=== PATIENT | male | born 1980 | race Caucasian/White ===

== ENCOUNTER 2017-01-30 16:26 | Emergency (ER) | payer SELFPAY ==
[~2017-01-30] VITALS: Ht 177.8 cm; Wt 90.7 kg
[2017-01-30 16:49] VITALS: BP 121/85
[2017-01-30] MEDS ORDERED: PROAIR HFA8.5 GM INH (18:29)
[2017-01-30] MEDS ORDERED: PRED20TA PO (18:29)
[2017-01-30] MEDS ORDERED: BENZ200C39 PO (18:29)
--- NOTE | 2017-01-30 18:29 | PHYS DOC ---
Past Medical History Past Medical History: Seizure Past Surgical History: No Surgical History Smokin Pack Per Day Alcohol Use: None Drug Use: None Social History Narrative: rehab for meth, clean x 2 wks Adult General Chief Complaint Chief Complaint: COUGH HPI HPI Patient is a 36 year old male who presents with productive cough and shortness of breath for the last 4-5 days. He has also had a sore throat. He denies fever , nasal congestion, ear pain, vomiting, or diarrhea. He is currently at the [facility] rehab facility for methamphetamine abuse. He has been sober for 2 weeks. He does not have a PCP. Review of Systems Review of Systems Constitutional: Denies fever or chills. [] Eyes: Denies change in visual acuity, redness, or eye pain. [] HENT: Denies ear pain, nasal congestion. Reports sore throat. Respiratory: Reports productive cough and shortness of breath. Cardiovascular: Denies chest pain, palpitations or edema. [] GI: Denies abdominal pain, nausea, vomiting, bloody stools or diarrhea. [] : Denies dysuria, hematuria or urinary frequency. [] Musculoskeletal: Denies back pain or joint pain. [] Integument: Denies rash or skin lesions. [] Neurologic: Denies headache, focal weakness or sensory changes. [] Endocrine: Denies polyuria or polydipsia. [] Psych: Denies anxiety or depression. [] All systems reviewed and negative unless otherwise stated in the HPI. Allergies Allergies Allergies Coded Allergies Type Severity Reaction Last Updated Verified azithromycin Allergy Severe Anaphylaxis 01/30/17 Yes Penicillins Allergy Intermediate 01/30/17 Yes Physical Exam Physical Exam Constitutional: Well developed, well nourished, no acute distress, non-toxic appearance. [] HENT: Normocephalic, atraumatic, bilateral external ears normal, oropharynx moist, no oral exudates, nose normal. Bilateral TMs without erythema or bulging. There is no posterior pharyngeal erythema or tonsillar edema. Bilateral nasal turbinates are swollen and erythematous. Eyes: PERRLA, EOMI, conjunctiva normal, no discharge. [] Neck: Normal range of motion, no tenderness, supple, no stridor. [] Cardiovascular: Heart rate regular rhythm, no murmur [] Lungs & Thorax: Bilateral breath sounds clear to auscultation without wheezes, rales, or rhonchi. Skin: Warm, dry, no erythema, no rash. [] Neurologic: Alert and oriented X 3, normal motor function, normal sensory function, no focal deficits noted. [] Psychologic: Affect normal, judgement normal, mood normal. [] Current Patient Data Vital Signs Vital Signs Date Time Temp Pulse Resp B/P Pulse Ox O2 Delivery O2 Flow Rate FiO2 01/30/17 16:49 98.4 87 20 121/85 99 Room Air 98.4 EKG EKG [] Radiology/Procedures Radiology/Procedures PA and lateral chest x-ray reviewed and interpreted by myself with Dr. Hannon. There are no focal infiltrates to suggest pneumonia. No acute cardiopulmonary process. Course & Med Decision Making Course & Med Decision Making Pertinent Labs and Imaging studies reviewed. (See chart for details) [] Dragon Disclaimer Dragon Disclaimer This electronic medical record was generated, in whole or in part, using a voice recognition dictation system. Departure Departure Impression: Primary Impression: Bronchitis Disposition: HOME, SELF-CARE Condition: STABLE Referrals: NO PCP (PCP) Patient Instructions: Acute Bronchitis, [id number] Additional Instructions: Your x-ray does not show any sign of pneumonia. Please complete all the prescribed steroids. Please use the prescribed inhaler as needed for cough or shortness of breath. Do not use more often than directed. Please follow-up with a primary care provider within the next week. Return to the emergency department if you have any new or concerning symptoms. Scripts Albuterol Sulfate (Proair Hfa Inhaler)8.5 Gm [email or web address] Puff INH Q4HRS PRN SHORTNESS OF BREATH #1 INHALER Prov:TALIA FONG 01/30/17 Prednisone 20 Mg [id number] Mg PO DAILY 5 Days Prov:TALIA FONG 01/30/17 Benzonatate 200 Mg Capsule1 Cap PO TID #30 CAP Prov:TALIA FONG 01/30/17 TALIA FONG Jan 30, 2017 18:29
--- NOTE | 2017-01-31 08:10 | RAD ---
Indication cough and shortness of breath. PA and lateral views of the chest were obtained. No prior imaging of the chest is available. The heart and pulmonary vessels appear normal. The lungs are clear. There is no pleural fluid or pneumothorax. There is fusion of several lower thoracic vertebral body segments. IMPRESSION: No acute finding seen in the chest
== END 2017-01-30 18:33 | disposition home or self-care (01) ==
LOC: ER 16:26
DX: J40 Bronchitis, not specified as acute or chronic (principal); F17.200 Nicotine dependence, unspecified, uncomplicated; Z88.0 Allergy status to penicillin; Z88.1 Allergy status to other antibiotic agents
CPT/HCPCS: 71020; 99284-25